=== PATIENT | female | born 1960 | race Hispanic/Latino ===

== ENCOUNTER 2018-02-25 10:49 | Emergency (ER) | payer OTHER ==
[2018-02-25 12:16] LABS: BASOPHILS % (AUTO) 0.2 % (0.0-5.0); EOSINOPHILS % (AUTO) 0.1 % (0.0-8.0); HEMATOCRIT 42.6 % (36-48); MEAN CORPUSCULAR HEMOGLOBIN 30.6 pg (27.0-33.0); MEAN CORPUSCULAR HGB CONC 33.8 g/dL (32.0-36.0); MEAN CORPUSCULAR VOLUME 90.7 fL (79-99); MONOCYTES % (AUTO) 3.2 % (3.0-13.0); NEUTROPHILS % (AUTO) 84.5 % (40.0-77.0); PLATELET COUNT (AUTO) 242 K/uL (130-400); RED CELL DISTRIBUTION WIDTH 12.8 % (11.0-15.5); WHITE BLOOD COUNT (AUTO) 8.1 K/uL (4.8-10.8)
[2018-02-25 12:30] LABS: CREATININE 0.7 mg/dL (0.5-1.5); POTASSIUM 3.8 mmol/L (3.5-5.1)
[2018-02-25 12:35] LABS: ALBUMIN 4.3 g/dL (3.5-5.0); BILIRUBIN,TOTAL 0.6 mg/dL (0.2-1.0); TOTAL PROTEIN, SERUM 8.4 g/dL (6.0-8.3)
[2018-02-25] MEDS ORDERED: MECLIZINE HCL 25 MG TABLET ONE ×2 (14:35→17:41)
[2018-02-25] MEDS ORDERED: ONDANSETRON HCL 4 MG/2 ML VIAL ONE (14:35)
[2018-02-25] MEDS ORDERED: CEFTRIAXONE SODIUM 1 GM ONE (16:17)
[2018-02-25] MEDS ORDERED: LIDOCAINE HCL-MPF 1% 2ML VIAL ONE (16:17)
[2018-02-25] MEDS ORDERED: KETOROLAC TROMETHAMINE 30MG/ML ONE (16:18)
== END 2018-02-25 18:39 | disposition home or self-care (01) ==
LOC: EDH 10:49
DX: H81.12 Benign paroxysmal vertigo, left ear (principal)
CPT/HCPCS: 36415; 80053; 84484; 85025; 93005; 96361; 96374; 99285; J0696; J1885; J2405; J3490